=== PATIENT | female | born 1955 | race Caucasian/White ===

== ENCOUNTER 2019-06-20 07:14 | Emergency (ER) | payer BC ==
[2019-06-20 07:31] VITALS: BP 125/73
--- NOTE | 2019-06-20 07:48 | ED ---
Throat Pain/Nasal Congestion - HPI Summary HPI Summary: 63 yr old female with the complaint of dental pain. Onset a couple of days ago in an upper left tooth that is a little loose and has had prior root canal. She has developed some left side facial swelling since last evening. The pain is moderate. No fever. No eye pain. - History of Current Complaint Chief Complaint: UCDentalProblem Time Seen by Provider: 06/20/19 07:42 - Allergies/Home Medications Allergies/Adverse Reactions: Allergies Allergy/AdvReac Type Severity Reaction Status Date / Time Sulfa (Sulfonamide Allergy Swelling Verified 06/20/19 07:31 Antibiotics) Of Face,Lips,& Throat Home Medications: Home Medications Cholecalciferol (Vitamin D3) [Vitamin D-3] 2,000 unit PO BID 06/20/19 [History Confirmed 06/20/19] Irbesartan (NF) [Avapro (NF)] 150 mg PO DAILY 06/20/19 [History Confirmed ] Levothyroxine TAB* [Synthroid TAB*] 100 mcg PO DAILY 06/20/19 [History Confirmed 06/20/19] Simvastatin [Zocor] 40 mg PO DAILY 06/20/19 [History Confirmed 06/20/19] PMH/Surg Hx/FS Hx/Imm Hx Endocrine/Hematology History: Reports: Hx Thyroid Disease Cardiovascular History: Reports: Hx Hypertension Infectious Disease History: No Infectious Disease History: Denies: Traveled Outside the [place] in Last 30 Days - Family History Known Family History: Positive: None - Social History Occupation: Retired Alcohol Use: Occasionally Substance Use Type: Reports: None Smoking Status (MU): Never Smoked Tobacco Review of Systems Constitutional: Negative Positive: Other - left facial swelling, dental pain All Other Systems Reviewed And Are Negative: Yes Physical Exam Triage Information Reviewed: Yes Vital Signs On Initial Exam: Initial Vitals Temp Pulse Resp BP Pulse Ox 98.9 F 79 16 125/73 96 06/20/19 07:26 06/20/19 07:26 06/20/19 07:26 06/20/19 07:26 06/20/19 07:26 Vital Signs Reviewed: Yes Appearance: Positive: Well-Appearing, No Pain Distress Skin: Positive: Warm, Skin Color Reflects Adequate Perfusion Head/Face: Positive: Normal Head/Face Inspection Eyes: Positive: EOMI, ANDREY ENT: Positive: Pharynx normal, Other - left side of face with STS and mild erythema.. Negative: Pharyngeal erythema Dental: Positive: Other - tenderness over upper left teeth. Neck: Positive: Supple, No Lymphadenopathy. Negative: Enlarged Nodes @ Respiratory/Lung Sounds: Positive: Clear to Auscultation, Breath Sounds Present Cardiovascular: Positive: Pulses are Symmetrical in both Upper and Lower Extremities Abdomen Description: Negative: Distended Musculoskeletal: Positive: Strength/ROM Intact Neurological: Positive: Sensory/Motor Intact, Alert, Oriented to Person Place, Time, CN Intact II-III, Normal Gait, Speech Normal Psychiatric: Positive: Normal Diagnostics - Vital Signs Vital Signs Temp Pulse Resp BP Pulse Ox 06/20/19 07:26 98.9 F 79 16 125/73 96 - Laboratory Lab Statement: Any lab studies that have been ordered have been reviewed, and results considered in the medical decision making process. EENT Course/Dx - Course Course Of Treatment: dental cavity and facial cellulitis. She understands to go to the ER for any worsening symptoms, and especially for any left eye pain. - Diagnoses Provider Diagnoses: Dental cavity, Facial cellulitis Discharge ED - Sign-Out/Discharge Documenting (check all that apply): Patient Departure All imaging exams completed and their final reports reviewed: No Studies - Discharge Plan Condition: Good Disposition: HOME Prescriptions: Amoxicillin/Clavulanate TAB* [Augmentin TAB 875*] 875 mg PO BID #20 tab Ibuprofen TAB* [Motrin TAB* 600 MG] 600 mg PO Q8H PRN #14 tab PRN Reason: Pain - Mild Patient Education Materials: Dental Abscess (ED) Referrals: No Primary Care Phys,NOPCP [Primary Care Provider] - Additional Instructions: Be sure to follow up with your dentist in [facility] as soon as possible. - Billing Disposition and Condition Condition: GOOD Disposition: Home
== END 2019-06-20 07:53 | disposition home or self-care (01) ==
LOC: UCCORT 07:14
DX: K02.9 Dental caries, unspecified (principal); L03.211 Cellulitis of face; I10 Essential (primary) hypertension; E07.9 Disorder of thyroid, unspecified; Z79.890 Hormone replacement therapy; Z79.899 Other long term (current) drug therapy; Z88.2 Allergy status to sulfonamides
CPT/HCPCS: 99202; G0463